=== PATIENT | female | born 1975 | race Hispanic/Latino ===

== ENCOUNTER 2017-11-28 02:52 | Emergency (ER) | payer SELFPAY ==
[~2017-11-28 02:52] MED LIST: CYCLOBENZAPRINE5 M2 PO; IBUPROFEN800 M1 PO
--- NOTE | 2017-11-28 03:07 | ED UPPER/LOWER EXTREMITY COMPL ---
History of Present Illness General Chief Complaint: Upper Extremity Problem Stated Complaint: "LT ARM PAIN" Source: patient Exam Limitations: no limitations Vital Signs & Intake/Output Vital Signs & Intake/Output Vital Signs Date Time Temp Pulse Resp B/P B/P Pulse O2 O2 Flow FiO2 Mean Ox Delivery Rate 11/28 0314 97.8 11/28 0308 74 18 110/64 100 Room Air Allergies Coded Allergies: No Known Allergies (12/23/15) Reconcile Medications Cyclobenzaprine HCl 10 MG TABLET 1 TAB PO 4 TIMES/DAY PRN MUSCLE SPASM Cyclobenzaprine HCl 5 MG TABLET 1 TAB PO TIDPRN PRN pain Ibuprofen 800 MG TABLET 1 TAB PO TID PRN pain/dolor Ibuprofen 800 MG TABLET 1 TAB PO TID PRN pain Triage Nurses Notes Reviewed? yes Onset: Gradual Duration: hour(s): Timing: recent history Severity: moderate Pain/Injury Location: Left: Shoulder. Method of Injury: unknown Modifying Factors: Improves With: rest. Worsens With: movement. Associated Symptoms: muscle spasm HPI: 42 yo woman in prior good health presents with pain in left shoulder, left bicep, left upper back for the past several hours, worse with movement, relieved by rest. She notes that she had a prior injury several years ago to her left shoulder, but no recent fall or injury. She has been taking some tylenol without significant relief. She has no chest pain, shortness of breath, dizziness, fever. She is otherwise well. Past History Travel History Traveled to [place] past 21 day No Medical History Any Pertinent Medical History? 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 No Review of Systems Review of Systems Constitutional: Reports: no symptoms. EENTM: Reports: no symptoms. Respiratory: Reports: no symptoms. Cardiovascular: Reports: no symptoms. Gastrointestinal/Abdominal: Reports: no symptoms. Genitourinary: Reports: no symptoms. Musculoskeletal: Reports: no symptoms. Skin: Reports: no symptoms. Neurological/Psychological: Reports: no symptoms. Hematologic/Endocrine: Reports: no symptoms. Immunological: Reports: no symptoms. All Other Systems: Reviewed and Negative Physical Exam Physical Exam General Appearance: well developed/nourished, mild distress Head: atraumatic, normal appearance Eyes: Bilateral: normal appearance. Ears, Nose, Throat: normal pharynx, normal ENT inspection Neck: normal inspection, supple, full range of motion Cardiovascular/Respiratory: normal breath sounds Back: normal inspection, muscle spasm, no vertebral tenderness Shoulder Left: normal range of motion, normal inspection, muscle spasm in left shoulder girdle, pain elicited with passive ROM, 2+distal pulses, spasm in left bicep. light touch intact. Skin: intact, normal color, warm/dry Progress Differential Diagnosis: muscle spasm vs rotator cuff injury vs other. Plan of Care: Orders Procedure Date/time Status Durable Medical Equipment 11/28 313 Active Current Medications Sig/Ramírez Start time Last Medication Dose Stop Time Status Admin Cyclobenzaprine HCl 10 MG ONCE ONE 11/28 314 [facility] (Flexeril 10MG Tab) 11/29 315 Ketorolac 60 MG ONCE ONE 11/28 314 [facility]r Tromethamine 11/29 315 (Toradol) Departure Departure Disposition: HOME OR SELF CARE Condition: Stable Clinical Impression Primary Impression: Musculoskeletal pain Referrals: Patient Has No Primary Care Dr (PCP/Family) Departure Forms: Customer Survey General Discharge Information Prescriptions: Current Visit Scripts Ibuprofen 1 TAB PO TID PRN pain/dolor #30 TAB Cyclobenzaprine HCl 1 TAB PO 4 TIMES/DAY PRN MUSCLE SPASM #30 TAB Ref 1
[2017-11-28 03:08] VITALS: BP 110/64
[2017-11-28] MEDS ORDERED: CYCLOBENZAPRINE10 M1 PO (03:14)
[2017-11-28] MEDS ORDERED: IBUPROFEN800 M1 PO (03:14)
[2017-11-29] MEDS ORDERED: PERCOCET 5-3251 EACH PO (16:30)
== END 2017-11-28 03:35 ==
LOC: ERH 02:52
DX: M54.9 Dorsalgia, unspecified (principal)
CPT/HCPCS: 96372; J1885